=== PATIENT | male | born 1995 | race Caucasian/White ===

== ENCOUNTER → 2018-03-29 | Day surgery (SDC) | payer BC ==
[~2018-03-29] MED LIST: ACETAMINOPHEN 1000 MG/100 ML IV ONE; BUPIVACAINE 0.25% 30ML SDV INJ ONE; DEXAMETHASONE SOD PHOS INJ 4 MG/ML VIAL ONE; FENTANYL CITRATE/PF 100MCG/2 ML INJ ONE; GLYCOPYRROLATE INJ 1MG/ 5 ML SYR ONE; LIDOCAINE HCL 2% LOCAL INJ 5 ML SDV VIAL INJ ONE; MIDAZOLAM HCL 2 MG/2 ML VIAL ONE; NEOSTIGMINE 5 MG/5ML SYR ONE; ONDANSETRON HCL INJ 2 MG/ML VIAL ONE; PROPOFOL IV EMULSION 10 MG/ML 20 ML VIAL ONE; ROCURONIUM BROMIDE 10 MG/ML 5ML VIAL ONE; SEVOFLURANE INHAL SOLN 250 ML PEN BTL ONE
--- NOTE | 2018-03-29 08:22 | Operative Report ---
DATE OF PROCEDURE: March 29, 2018 PREOPERATIVE DIAGNOSIS: Adenotonsillar hypertrophy and chronic adenotonsillitis. POSTOPERATIVE DIAGNOSIS: Adenotonsillar hypertrophy and chronic adenotonsillitis. PROCEDURE: Tonsillectomy and adenoidectomy. SIGNIFICANT FINDINGS: Tonsils are 3+/3+ bilaterally. Adenoids are moderately enlarged. BATH SOLUTION MAKER: None. ANESTHESIA: General endotracheal tube anesthesia. SPECIMENS REMOVED: Tonsils (adenoids were coblated). ESTIMATED BLOOD LOSS: Less than 1 mL. COMPLICATIONS: None. INDICATIONS: Patient is a 22-year-old white male with 4 years history of frequent episodes of adenotonsillitis treated maximally with multiple courses of antibiotics. Symptoms manifest as tonsillar swelling and redness resulting in snoring. On examination, his tonsils are 3+/3+ bilaterally. He is scheduled for tonsillectomy and adenoidectomy for the treatment of adenotonsillar hypertrophy and chronic adenotonsillitis. Risks and complications of the procedures were thoroughly discussed with patient, and they include infection, bleeding, scarring, failure to improve, need for additional operations, damage to teeth, gums, tongue and lips, persistent infections, persistent snoring, chronic pain, voice changes, numbness of the tongue, inability to taste, leakage of fluid through the nose when drinking liquids, permanent worse nasal obstruction, damage to eustachian tube orifices causing middle ear fluid and hearing loss, need for blood transfusions, damage to surrounding nerves, blood vessels, and muscles. PROCEDURE: The patient was taken to the operating room and placed supine on the operating table where general anesthesia was achieved through orotracheal intubation. Eyes were taped. Shoulder roll was placed. Head and body were draped. Decadron was administered. Table was turned 90 degrees with the head towards the surgeon. Pedro-Judson mouth gag was inserted without difficulty and placed into suspension on a Sotelo stand. There was no evidence of bifid uvula, diastasis of the muscular uvulae, or notched hard palate. Red rubber catheters were then inserted into the nose and brought out through the mouth to retract the soft palate. Examination of the nasopharynx revealed the adenoids to be moderately hypertrophied. Tonsils were also enlarged to 3+/3+ bilaterally. The left tonsil was grasped with a tonsillar Allis clamp, and was removed with the ArthroCare Coblator on a setting of 6 on cut mode taking care to stay right on the capsule of the tonsil. Right tonsil was removed in the same way. Hemostasis was obtained of the Coblator on a setting of 3 on coag mode. The adenoids were then removed with the ArthroCare Coblator on a setting of 8 on cut mode taking care to stay away and to avoid trauma to the torus tubarius bilaterally. Hemostasis was obtained with the Coblator on a setting of 3 on coag mode. Injection with 3 mL of 0.25% plain Marcaine was injected into the free edges of the anterior and posterior tonsillar pillars. Thorough irrigation was then performed. Stomach contents were suctioned with an NG tube. The red rubber catheters and Pedro-Judson mouth gag were then removed without difficulty revealing no trauma to the teeth, gums, tongue, and lips. Patient was awakened in the operating room, extubated and taken to the recovery room in good condition. Job#: [id number] CHEMO CAO
== END | disposition home or self-care (01) ==
LOC: OR 05:16
PROVIDERS: ATTEND Otolaryngology
DX: J35.03 Chronic tonsillitis and adenoiditis (principal); A42.9 Actinomycosis, unspecified; M53.9 Dorsopathy, unspecified; T78.40XA Allergy, unspecified, initial encounter; X58.XXXA Exposure to other specified factors, initial encounter
CPT/HCPCS: 42821; 88304; J1100; J2001; J2250; J2405; J3490